=== PATIENT | male | born 1995 | race Caucasian/White ===

== ENCOUNTER 2017-04-14 03:00 | Emergency (ER) | payer SELFPAY ==
[~2017-04-14] VITALS: Ht 175.3 cm; Wt 71.0 kg
[~2017-04-14 03:00] MED LIST: ADDERALL 15 MG15 M1 PO; ADDERALL XR 1010 M1 PO; ADVAIR; ADVAIR 5001 DISK W/D; AMOXICILLIN; AMOXIL400 MG/5 M PO; CLARITIN10 M2 PO; CLARITIN10 MG; DELTASONE10 MG PO; FLOVENT; FLUOXETINE PO; FOCALIN XR40 MG PO; KEFLEX500 M4 PO; NO HOME MEDS; PROVENTIL HFA6.7 G1 INH; PROVENTIL17 GM; SEROQUEL50 MG PO; SINGULAIR4 MG; SINGULAIR5 MG PO; [UNRECOGNIZED DRUG - OTHER]
[2017-04-14] MEDS ORDERED: CLINDAMYCIN HC300 M2 PO (04:07)
[2017-04-14] MEDS ORDERED: NORCO 5-325 TA1 EACH PO (04:11)
== END 2017-04-14 04:25 ==
LOC: EDMED 03:00
DX: J36 Peritonsillar abscess (principal); J45.909 Unspecified asthma, uncomplicated
CPT/HCPCS: J0561